=== PATIENT | female | born 1990 | race Caucasian/White ===

== ENCOUNTER 2017-01-13 12:55 | Emergency (ER) | payer OTHER ==
[~2017-01-13] VITALS: Ht 162.6 cm; Wt 45.9 kg
[~2017-01-13 12:55] MED LIST: BUSPAR15 MG PO; MOTRIN800 MG PO; NORCO 5/3251 TABLET PO
[2017-01-13 13:59] LABS: EOSINOPHIL (%) 0.4 % (0-5); EOSINOPHIL COUNT 0.1 K/uL (0-0.3); IMMATURE GRANULOCYTE (%) 0.2 % (0.0-0.7); IMMATURE GRANULOCYTE COUNT 0.3 K/uL; LYMPHOCYTE COUNT 2.1 K/uL (1.0-2.8); MCH 30.2 PG (29.0-34.0); MCHC 34.4 G/DL (30.0-36.0); MCV 87.8 FL (83-99); MEAN PLAT.VOLUME 11.4 uM^3 (9.5-12.4); MONOCYTE (%) 7.5 % (3-12); MONOCYTE COUNT 0.9 K/uL (0-0.8); NEUTROPHIL (%) 74.1 % (45-76); NEUTROPHIL COUNT 8.9 K/uL (1.8-6.4); PLATELET COUNT 237 K/uL (156-360); RBC DIS.WIDTH-CV 12.3 % (11.8-14.6); RBC DIS.WIDTH-SD 38.9 % (39-53); RED BLOOD COUNT 4.44 M/uL (3.80-5.20); WHITE BLOOD COUNT 12.1 K/uL (4.1-10.2)
[2017-01-13 14:09] LABS: CHLORIDE 108 mEq/L (99-109); POTASSIUM 3.4 mEq/L (3.7-5.4); SODIUM 142 mEq/L (136-147)
[2017-01-13 14:11] LABS: GLUCOSE 83 mg/dL (70-99)
[2017-01-13 14:12] LABS: ANION GAP 14 MEQ/L (2-14)
[2017-01-13 14:13] LABS: TOTAL BILIRUBIN 0.7 mg/dL (0.0-1.0)
[2017-01-13 14:14] LABS: SERUM ETHYL ALCOHOL < 10 mg/dL
[2017-01-13 14:15] LABS: ALKALINE PHOSPHATASE 57 IU/L (3-129); GFR ESTIMATE (CALCULATED) > 59 mL/min/
[2017-01-13 14:16] LABS: UREA NITROGEN (BUN) 18 mg/dL (9-23)
[2017-01-13 14:23] LABS: QUANTITATIVE HCG < 4.0 MIU/ML
[2017-01-13 15:32] VITALS: BP 125/79
== END 2017-01-13 15:34 | disposition home or self-care (01) ==
LOC: EME 12:55
PROVIDERS: Emergency Medicine
DX: F16.10 Hallucinogen abuse, uncomplicated (principal); F41.9 Anxiety disorder, unspecified; T14.8 Other injury of unspecified body region; Y07.03 Male partner, perpetrator of maltreatment and neglect
CPT/HCPCS: 80053; 81003; 84702; 85025; 90837; 99281; 99284; G0480